=== PATIENT | female | born 1975 | race Caucasian/White ===

== ENCOUNTER 2022-02-25 23:02 | Emergency (ER) | payer OTHER ==
[~2022-02-25] VITALS: Ht 157.5 cm; Wt 59.0 kg
[2022-02-25] MEDS ORDERED: IRON18 MG (23:43)
[2022-02-26] MEDS ORDERED: ZITHROMAX500 MG PO (03:19)
== END 2022-02-26 03:38 ==
LOC: ER 23:02
DX: A31.9 Mycobacterial infection, unspecified (principal); Z20.822 Contact with and (suspected) exposure to COVID-19

== ENCOUNTER 2022-03-11 21:00 | Emergency (ER) | payer OTHER ==
[~2022-03-11] VITALS: Ht 157.5 cm; Wt 59.0 kg
[~2022-03-11 21:00] MED LIST: IRON18 MG; ZITHROMAX500 MG PO
[2022-03-11] MEDS ORDERED: ZYRTEC10 M3 (21:13)
[2022-03-11] MEDS ORDERED: PEPCID AC20 MG (21:13)
[2022-03-11] MEDS ORDERED: IPRAT-ALBUT 0.5-3 ML IH (22:54)
[2022-03-11] MEDS ORDERED: LEVOFLOXACIN250 MG PO (22:54)
== END 2022-03-11 23:51 | disposition home or self-care (01) ==
LOC: ER 21:00
DX: J20.9 Acute bronchitis, unspecified (principal); Z20.822 Contact with and (suspected) exposure to COVID-19

== ENCOUNTER 2023-02-04 13:35 | Emergency (ER) | payer OTHER ==
[~2023-02-04] VITALS: Ht 157.5 cm; Wt 59.0 kg
[~2023-02-04 13:35] MED LIST changes: +IPRAT-ALBUT 0.5-3 ML IH; +LEVOFLOXACIN250 MG PO; +PEPCID AC20 MG; +ZYRTEC10 M3
== END 2023-02-04 16:45 | disposition home or self-care (01) ==
LOC: ER 13:35
DX: K05.10 Chronic gingivitis, plaque induced (principal)

== ENCOUNTER 2024-02-05 01:58 | Emergency (ER) | payer OTHER ==
[~2024-02-05] VITALS: Ht 157.5 cm; Wt 59.0 kg
[2024-02-05] MEDS ORDERED: PRILOSEC OTC20 MG (02:08)
[2024-02-05] MEDS ORDERED: TOPROL XL25 M1 (02:08)
[2024-02-05 04:50] LABS: HEMOGLOBIN 10.7 g/dL (12.0-15.00); MEAN CELL VOLUME 72.4 fL (80.00-100.00); MEAN CORPUSCULAR HEMOGLOBIN 24.2 pg (27.00-32.0); MEAN CORPUSCULAR HGB CONC 33.4 g/dl (32.0-36.0); PLATELET COUNT 363 K/uL (150-450); RED BLOOD COUNT 4.41 M/uL (4.00-6.00); RED CELL DISTRIBUTION WIDTH 16.6 % (11.5-14.5)
== END 2024-02-05 06:40 | disposition home or self-care (01) ==
LOC: ER 01:59
DX: J06.9 Acute upper respiratory infection, unspecified (principal); Z20.822 Contact with and (suspected) exposure to COVID-19